=== PATIENT | male | born 1960 | race Caucasian/White ===

== ENCOUNTER 2019-11-02 14:17 | Emergency (ER) | payer MEDICAID ==
[~2019-11-02] VITALS: Ht 147.3 cm; Wt 83.5 kg
[2019-11-02 14:32] VITALS: Ht 147.3 cm; Wt 83.5 kg
[2019-11-02 15:25] LABS: BASOPHIL % 1.6 % (0-2); PLATELET COUNT 234 x10^3mcL (130-400); RED CELL DISTRIBUTION WIDTH 14.1 % (11.5-14.5)
[2019-11-02 15:35] LABS: CALCIUM 8.4 mg/dL (8.5-10.1); CARBON DIOXIDE 31.5 mmol/L (21-32); CHLORIDE SERUM 104 mmol/L (98-107); CREATININE SERUM 0.9 mg/dL (0.7-1.3); GFR1 > 60 mL/min; GLUCOSE SERUM 86 mg/dL (74-106); POTASSIUM SERUM 3.8 mmol/L (3.5-5.1); SODIUM SERUM 140 mmol/L (136-145)
[2019-11-02 15:39] LABS: ALBUMIN 3.4 g/dL (3.4-5.0); ALKALINE PHOSPHATASE 108 U/L (46-116); ALT/SGPT 36 U/L (16-63); AST/SGOT 24 U/L (15-37); BILIRUBIN TOTAL 0.3 mg/dL (0.20-1.00); LIPASE 104 IU/L (73-393); TOTAL PROTEIN, SERUM 7.2 g/dL (6.4-8.2)
[2019-11-02 17:41] VITALS: BP 114/73
== END 2019-11-02 18:36 | disposition home or self-care (01) ==
LOC: ED 14:17
PROVIDERS: Student in an Organized Health Care Education/Training Program
DX: C18.9 Malignant neoplasm of colon, unspecified (principal); R10.30 Lower abdominal pain, unspecified
CPT/HCPCS: Q9967